=== PATIENT | female | born 1965 | race Caucasian/White ===

== ENCOUNTER 2018-01-24 08:36 | Emergency (ER) | payer OTHER ==
[~2018-01-24] VITALS: Ht 165.1 cm; Wt 67.0 kg
[~2018-01-24 08:36] MED LIST: FLX10 PO; IBUP600T44 PO; TRAM-10 PO
[2018-01-24 08:38] VITALS: TEMP 36.7; Ht 165.1 cm; Wt 67.0 kg
[2018-01-24] MEDS ORDERED: DULO60CA44 PO (09:40)
[2018-01-24] MEDS ORDERED: BNT/10 PO (09:40)
[2018-01-24] MEDS ORDERED: ATOR-22 PO (09:40)
[2018-01-24] MEDS ORDERED: GABA-112 PO (09:40)
[2018-01-24] MEDS ORDERED: CHOL100010 PO (09:40)
[2018-01-24] MEDS ORDERED: OXYC1TAB3 PO (09:54)
[2018-01-24 10:15] VITALS: BP 110/66; PULSE 87; O2SAT 99
--- NOTE | 2018-01-24 14:40 | EMERGENCY ROOM VISIT NOTE ---
History First contact with patient: 08:42 Chief Complaint: LEG PAIN,LEG INJURY Stated Complaint: RT LOWER LEG PAIN,LOWER BACK PAIN History of Present Illness The patient is a 52 year old female who presents to the Emergency Room with complaints of right lower back and right lower extremity pain. The patient reports a history of lower back problems and neck problems. She has undergone extensive workup by her PCP, Dr. Lewis. She completed a prednisone taper 2.5 weeks ago without any relief of symptoms. She also follows with a device sales consultant, and reports taking gabapentin and NSAIDs. She has also seen Dr. Siegel and Dr. Milian from neurology. She reports undergoing EMG studies of the neck and subsequent epidural steroid injection. She reports that Dr. Milian did attempt to perform an EMG of the right lower extremity without success. She is also scheduled to see Dr. Liu, a back surgeon in February for her neck. She has undergone ambulatory care nurse. She also has a history of right tib-fib fracture in 2001 with subsequent hardware removal. The patient currently denies any bladder/bowel incontinence, saddle anesthesias, right lower extremity weakness or foot drop. She rates her overall discomfort an 8 out of 10. The patient reports that she has had recent extensive x-rays, including of her back, right knee and right leg. She was also recently seen in the [place] emergency department and underwent an ultrasound study of the right leg that did not show any evidence for deep vein thrombosis. Review of Systems 10 system review was performed and was negative except for pertinent positives and negatives as indicated in history of present illness Past Medical/Surgical History Medical Problems: (1) Cervical radiculopathy due to degenerative joint disease of spine (2) Fracture of right lower leg (3) Tobacco use disorder Surgical Problems: (1) History of delivery Family History FH: cardiovascular disease FH: musculoskeletal disease Social History Smoking Status: Current Every Day Smoker Alcohol Use: occasionally Marital Status: single Occupation Status: employed Current/Historical Medications Scheduled Atorvastatin (Lipitor), 20 MG PO DAILY Cholecalciferol (Vitamin D), 1,000 UNITS PO DAILY Dicyclomine HCl (Dicyclomine HCl), Unknown Dose PO DAILY Duloxetine Hcl (Cymbalta), Unknown Dose PO DAILY Gabapentin (Neurontin), Unknown Dose PO QID Scheduled PRN Oxycodone Ir (Roxicodone Ir), 1-2 TAB PO Q4H PRN for Pain Physical Exam Vital Signs Date Time Temp Pulse Resp B/P (MAP) Pulse Ox O2 Delivery O2 Flow Rate FiO2 01/24/18 10:15 87 18 110/66 99 01/24/18 08:38 36.7 96 18 110/74 99 Room Air Physical Exam CONSTITUTIONAL: Healthy and well nourished. Alert and oriented X 3 with positive affect. Patient appears in mild discomfort. HEENT: Normocephalic, atraumatic. Pupils equal, round and reactive. NECK: Full active range of motion without discomfort. RESPIRATORY: Clear to auscultation bilaterally with no wheezing, crackles, rhonchi or stridor. CARDIOVASCULAR: Regular rate and rhythm with no murmurs, rubs or gallops. GASTROINTESTINAL: Bowel sounds present in all quadrants. Soft and nontender to palpation. MUSCULOSKELETAL: Examination shows generalized tenderness to palpation through the lower lumbar spine and right SI joint. Negative logroll. Negative sitting straight leg raise. Ankle plantar/dorsiflexion strength is 5 out of 5 and symmetric bilaterally. Pedal pulses are intact. INTEGUMENTARY: No rash or other significant dermatologic conditions noted. NEUROLOGIC: No focal neurologic deficits noted. Right lower extremity is sensory intact. Medical Decision & Procedures ED Course Patient history and physical exam were performed. Nurse's notes were reviewed. Vital signs were reviewed and were normal. The patient presents with x-rays on disc. I did review these x-rays to show no obvious evidence for fractures, dislocations or other acute findings within the lumbar spine or right knee. At this point, I suggested that the patient follow-up with her PCP to discuss further workup, including possible MRI of the back and formal EMG study of the right lower extremity. Patient was advised that her symptoms are most consistent with a lumbar radiculitis. She has already undergone an ultrasound that did not show any evidence for underlying deep vein thrombosis. It is possible that the patient could have chronic pain from her right tib-fib fracture, status post hardware removal. The patient was provided a short prescription for OxyIR 5 mg. The patient was warned about drinking and driving while taking this medication. The patient was happy with plan of care, voiced understanding of all discharge instructions, and rated her overall discomfort 10 at the completion of my exam. Medical Decision See previous section [place] Drug Monitoring Program Search Results: patient reviewed within database, no issues identified Medication Reconcilliation Current Medication List: was personally reviewed by me Blood Pressure Screening Patient's blood pressure: Normal blood pressure Impression Primary Impression: Right lumbar radiculopathy Departure Information Dispostion Home / Self-Care Condition FAIR Prescriptions Oxycodone Ir (Roxicodone Ir) 5 Mg Tab 1-2 TAB PO Q4H Y for Pain, #15 TAB For Initial Treatment Prov: Alejandro Augustin PA 01/24/18 Forms HOME CARE DOCUMENTATION FORM, IMPORTANT VISIT INFORMATION Patient Instructions My [facility] Additional Instructions Continue with medications as prescribed by your device sales consultant. You have been provided a prescription for OxyIR 5 mg if needed for worse pain. Do not drink alcohol or drive while taking OxyIR. Suggest contact your PCP to discuss having an MRI of the lumbar spine. Would also suggest discussing a right lower extremity EMG for confirmation that this pain is originating from the back and not pain from your prior leg fracture.
== END 2018-01-24 10:15 | disposition home or self-care (01) ==
LOC: C.EDB 08:37 → C.EDA 10:15
DX: M54.16 Radiculopathy, lumbar region (principal); Z87.81 Personal history of (healed) traumatic fracture; F17.200 Nicotine dependence, unspecified, uncomplicated; Z82.69 Family history of other diseases of the musculoskeletal system and connective tissue